=== PATIENT | male | born 1935 | race Caucasian/White ===

== ENCOUNTER 2017-10-29 06:24 | Outpatient (CLI) | payer OTHER | END 2017-10-29 06:25 | disposition critical access hospital (66) | LOC: EMS 06:24 | PROVIDERS: ATTEND Surgery | DX: R53.1 Weakness (principal); R50.9 Fever, unspecified; R05 Cough; R07.9 Chest pain, unspecified; W06.XXXA Fall from bed, initial encounter; Y92.003 Bedroom of unspecified non-institutional (private) residence as the place of occurrence of the external cause | CPT/HCPCS: A0425; A0427 ==

== ENCOUNTER 2017-10-29 06:44 | Emergency (ER) | payer OTHER ==
--- NOTE | 2017-10-29 07:08 | ED Physician Documentation ---
PD HPI SYNCOPE - Stated complaint Stated Complaint: WEAKNESS - Chief complaint Chief Complaint: Neuro - History obtained from History obtained from: Patient, Family (), EMS - History of Present Illness Timing - onset: How many hours ago (1) Duration: Minutes Preceding symptoms: Generalized weakness (he has been feeling sick with weakness , aches, cough, wheezing for 2-3 days (his was sick first and now he has it ). as getting out of bed and could not stand, slumped to the floor onto his buttocks, and then could not get up. No LOC per se. No headache nor chest pain. He is a big vinicius and could not get him up. EMS called. They noted BP to be low at 80s systolic initially while sitting up on the floor. This improved once lying on stretcher and given also some IV fluids enroute. Heart rate seemed irregular to the Medics. Monitor here showing NSR with PVCs and some PACs.). No : Headache Associated symptoms: Dyspnea. No: Headache, Chest pain, Diaphoresis, Abdominal pain Contributing factors: Just stood up (from bed) Injury occurred: No: Fell, Head injury, Neck injury Treatment LEAF BLENDER: Fluids Similar symptoms before: Has not had sx before Recently seen: Clinic (for UTI a couple weeks ago.) Review of Systems Constitutional: reports: Chills, Myalgias, Fatigue. denies: Fever Nose: reports: Rhinorrhea / runny nose, Congestion Throat: denies: Sore throat Respiratory: reports: Dyspnea, Cough, Wheezing GI: denies: Abdominal Pain, Nausea, Vomiting, Diarrhea : denies: Dysuria (did a few weeks ago, but is normal since abx for UTI.) Skin: denies: Rash, Lesions Musculoskeletal: denies: Neck pain, Back pain Neurologic: reports: Generalized weakness, Near syncope. denies: Focal weakness , Numbness, Syncope, Altered mental status Psychiatric: denies: Anxiety, Insomnia Endocrine: denies: Weight loss Immunocompromised: denies: Immunocompromised PD PAST MEDICAL HISTORY - Past Medical History Past Medical History: Yes Cardiovascular: Hypertension, High cholesterol Endocrine/Autoimmune: Type 2 diabetes, HyPOthyroidism Other Past Medical History: Neuropathy; Prostate problems - Past Surgical History Past Surgical History: Yes - Present Medications Home Medications: Ambulatory Orders Medication Instructions Recorded Confirmed Albuterol Sulf [Ventolin Hfa 1 - 2 puffs INH Q4HR PRN #1 inhaler 04/26/18 Inhaler] Benzonatate [Tessalon] 100 mg PO TID PRN #25 capsule 10/29/17 Cephalexin [Keflex] 500 mg PO DAILY 10/29/17 10/29/17 DULoxetine [Cymbalta] 20 mg PO DAILY 10/29/17 10/29/17 Dexamethasone [Decadron] 4 mg PO DAILY #5 tablet 10/29/17 Fexofenadine HCl 180 mg PO DAILY 10/29/17 10/29/17 Gabapentin 300 mg PO DAILY 10/29/17 10/29/17 Levothyroxine [Synthroid] 112 mcg PO QDAC 10/29/17 10/29/17 Metoprolol Succinate/Hctz 25 mg PO DAILY 10/29/17 10/29/17 [Metoprolol ER-Hctz 25-12.5 mg] Salsalate 750 mg PO DAILY 10/29/17 10/29/17 Simvastatin 40 mg PO DAILY 10/29/17 10/29/17 Tamsulosin [Flomax] 0.4 mg PO DAILY 10/29/17 10/29/17 Venlafaxine HCl [Effexor Xr] 150 mg PO DAILY 10/29/17 10/29/17 - Allergies Allergies/Adverse Reactions: Allergies Allergy/AdvReac Type Severity Reaction Status Date / Time No Known Drug Allergies Allergy Verified 10/29/17 07:33 - Living Situation Living Situation: reports: With spouse/s.o. Living Arrangement: reports: At home - Social History Does the pt smoke?: No Smoking Status: Never smoker Does the pt drink ETOH?: No Does the pt have substance abuse?: No - Family History Family history: reports: Non contributory - Immunizations Immunizations are current?: Yes PD ED PE NORMAL - Vitals Vital signs reviewed: Yes - General General: Alert and oriented X 3, No acute distress, Well developed/nourished - HEENT HEENT: Ears normal, Moist mucous membranes, Pharynx benign - Neck Neck: Supple, no meningeal sign, No adenopathy, No JVD - Cardiac Cardiac: No murmur. No: RRR (irregular but only slightly) - Respiratory Respiratory: No: Clear bilaterally (no coarse sounds; has diffuse exp wheezing throughout. ) - Abdomen Abdomen: Soft, Non tender - Male Male : Deferred - Rectal Rectal: Deferred - Back Back: No CVA TTP - Derm Derm: Normal color, Warm and dry, No rash - Extremities Extremities: No tenderness to palpate, Normal ROM s pain, No calf tenderness / cord, Other (1+ edema in both legs. Not tender. ) - Neuro Neuro: Alert and oriented X 3, childcare provider 2-12 intact, No motor deficit, No sensory deficit, Normal speech Eye Opening: Spontaneous Motor: Obeys Commands Verbal: Oriented GCS Score: 15 - Psych Psych: Normal mood Results - Vitals Vitals: Vital Signs - 24 hr 10/29/17 10/29/17 10/29/17 06:47 07:00 08:12 Temperature 37.7 C H Heart Rate 88 79 84 Respiratory 20 27 H 20 Rate Blood Pressure 119/60 119/97 H O2 Saturation 93 94 10/29/17 09:02 Temperature Heart Rate 81 Respiratory 16 Rate Blood Pressure O2 Saturation Oxygen O2 Source Nasal cannula Oxygen Flow Rate 2 - EKG (time done) 06:48 Rate: Rate (enter#) (96) Rhythm: NSR, Other (frequency PVCs and some PACs. ). No: Atrial fibrillation [place]: Normal Intervals: 1st degree AVB QRS: Normal Ischemia: Normal ST segments. No: ST elevation c/w ischemia, ST depression - Labs Labs: Laboratory Tests 10/29/17 10/29/17 10/29/17 07:44 07:44 07:44 WBC 3.8 L RBC 4.09 L Hgb 13.0 L Hct 38.4 L MCV 94.1 H MCH 31.9 H MCHC 33.9 RDW 14.7 Plt Count 58 L MPV 9.5 Neut # 2.7 Lymph # 0.5 L [place] # 0.6 Eos # 0.0 Baso # 0.0 Absolute Nucleated RBC 0.00 Nucleated RBC % 0.0 Sodium 137 Potassium 3.5 Chloride 108 Carbon Dioxide 23 Anion Gap 6.0 BUN 14 Creatinine 1.1 Estimated GFR (MDRD) 64 L Glucose 98 Lactic Acid Calcium 8.1 L Magnesium 1.7 Total Bilirubin 0.6 AST 20 ALT 21 Alkaline Phosphatase 55 Troponin I < 0.04 B-Natriuretic Peptide Total Protein 5.7 L Albumin 3.5 Globulin 2.2 Albumin/Globulin Ratio 1.6 Lipase 21 L Urine Color Urine Clarity Urine pH Ur Specific [place] Urine Protein Urine Glucose (UA) Urine Ketones Urine Occult Blood Urine Nitrite Urine Bilirubin Urine Urobilinogen Ur Leukocyte Esterase Ur Microscopic Review Urine Culture Comments 10/29/17 10/29/17 10/29/17 07:44 07:44 08:42 WBC RBC Hgb Hct MCV MCH MCHC RDW Plt Count MPV Neut # Lymph # [place] # Eos # Baso # Absolute Nucleated RBC Nucleated RBC % Sodium Potassium Chloride Carbon Dioxide Anion Gap BUN Creatinine Estimated GFR (MDRD) Glucose Lactic Acid 0.8 Calcium Magnesium Total Bilirubin AST ALT Alkaline Phosphatase Troponin I B-Natriuretic Peptide 232 H Total Protein Albumin Globulin Albumin/Globulin Ratio Lipase Urine Color YELLOW Urine Clarity CLEAR Urine pH 5.0 Ur Specific [place] 1.025 Urine Protein NEGATIVE Urine Glucose (UA) NEGATIVE Urine Ketones NEGATIVE Urine Occult Blood NEGATIVE Urine Nitrite NEGATIVE Urine Bilirubin NEGATIVE Urine Urobilinogen 0.2 (NORMAL) Ur Leukocyte Esterase NEGATIVE Ur Microscopic Review NOT INDICATED Urine Culture Comments NOT INDICATED - Rads (name of study) chest Radiology: Prelim report reviewed, EMP read contemporaneously PD MEDICAL DECISION MAKING - ED course Complexity details: reviewed results, re-evaluated patient (feeling still ill but ambulatory. Sats lower at 90-93%. Improved breathing with Albuterol nebs. He does not have sepsis, CHF, nor pneumonia ([facility] reading more c/w atelectasis) . No real admission criteria and he seems well enough to try home. He would prefer that. ), considered differential, d/w patient Departure - Departure Disposition: 01 Home, Self Care Clinical Impression: General weakness, Transient hypotension Upper respiratory infection Qualifiers: URI type: unspecified URI Qualified Code(s): J06.9 - Acute upper respiratory infection, unspecified Condition: Stable Record reviewed to determine appropriate education?: Yes Instructions: ED URI Viral W Wheezing Follow-Up: Wilfredo Rodriguez MD [Primary Care Provider] - Prescriptions: Albuterol Sulf [Ventolin Hfa Inhaler] 1 - 2 puffs INH Q4HR PRN #1 inhaler PRN Reason: Shortness Of Air/Wheezing Benzonatate [Tessalon] 100 mg PO TID PRN #25 capsule PRN Reason: Cough Dexamethasone [Decadron] 4 mg PO DAILY #5 tablet Comments: Drink lots of fluids. Continue your current medications. Your markers for sepsis are normal. Your chest x-ray is pretty clear without any obvious pneumonia. You do have the wheezing however and for that to use the albuterol inhaler 2 puffs 4 times a day for the next 7-10 days and extra times if needed. Decadron steroid for inflammation of the airways daily for 5 more days. You can stop it if your blood sugars get too high with it. Add Tessalon if needed for cough. Recheck if not improving over the next couple of days and return sooner if worse. Discharge Date/Time: 10/29/17 09:34
[2017-10-29 07:09] VITALS: BP 119/97
[2017-10-29] MEDS ORDERED: SODIUM CHLORIDE 0.9% 500 ML IV ONE (07:30)
[2017-10-29] MEDS ORDERED: ALBUTEROL NEB 2.5 MG/3 ML INH STA (07:30)
[2017-10-29 08:01] LABS: BASOPHILS % (AUTO) 0.2 %; LYMPHOCYTES # (AUTO) 0.5 10^3/uL (1.5-3.5); LYMPHOCYTES % (AUTO) 12.5 %; MEAN CORPUSCULAR HEMOGLOBIN 31.9 pg (27.0-31.0); MEAN CORPUSCULAR HGB CONC 33.9 g/dL (32.0-36.0); MEAN CORPUSCULAR VOLUME 94.1 fL (80.0-94.0); MEAN PLATELET VOLUME 9.5 fL (7.4-11.4); MONOCYTES # (AUTO) 0.6 10^3/uL (0.0-1.0); NEUTROPHILS # (AUTO) 2.7 10^3/uL (1.5-6.6); NEUTROPHILS % (AUTO) 71.3 %; PLT - PLATELET COUNT 58 10^3/uL (130-450); RED BLOOD COUNT 4.09 10^6/uL (4.70-6.10); RED CELL DISTRIBUTION WIDTH 14.7 % (12.0-15.0); WHITE BLOOD COUNT 3.8 x10^3/uL (4.8-10.8)
[2017-10-29 08:08] LABS: ALBUMIN 3.5 g/dL (3.2-5.5); ALBUMIN/GLOBULIN RATIO 1.6 (1.0-2.2); BILIRUBIN,TOTAL 0.6 mg/dL (0.2-1.0); CALCIUM 8.1 mg/dL (8.5-10.3); CREATININE 1.1 mg/dL (0.6-1.2); MAGNESIUM 1.7 mg/dL (1.7-2.8); TOTAL PROTEIN 5.7 g/dL (6.7-8.2)
--- NOTE | 2017-10-29 08:14 | XRAY Report ---
EXAM: CHEST RADIOGRAPHY EXAM DATE: 10/29/2017 08:06 AM. CLINICAL HISTORY: Cough and dyspnea for few days. COMPARISON: None. TECHNIQUE: 2 views. FINDINGS: Lungs/Pleura: There is mild streaky opacity at the right lung base. No pleural effusion. No pneumotho rax. Normal volumes. Mediastinum: There is mild enlargement of the cardiac silhouette. Other: No acute osseous abnormality. IMPRESSION: 1. Mild streaky opacity at the right lung base may be due to atelectasis, aspiration, or pneumonia. 2. Mild cardiomegaly. [facility] Referring Provider Line: [phone] SITE ID: [id number]
--- NOTE | 2017-10-29 08:14 | XRAY Preliminary Report ---
Exam: XR CHEST 2 VIEW X-RAY IMPRESSION: 1. Mild streaky opacity at the right lung base may be due to atelectasis, aspiration, or pneumonia. 2. Mild cardiomegaly. [facility] SITE ID: [id number]
[2017-10-29 08:46] LABS: BILIRUBIN,URINE NEGATIVE (NEGATIVE); GLUCOSE, URINE (UA) NEGATIVE (NEGATIVE); KETONES,URINE (UA) NEGATIVE (NEGATIVE); LEUKOCYTE ESTERASE, URINE NEGATIVE (NEGATIVE); NITRITE,URINE NEGATIVE (NEGATIVE); OCCULT BLOOD,URINE NEGATIVE (NEGATIVE); PROTEIN,URINE NEGATIVE (NEGATIVE); UROBILINOGEN,URINE 0.2 (NORMAL) E.U./dL (NORMAL)
[2017-10-29] MEDS ORDERED: IPRATROPIUM/ALBUTEROL 3 ML NEB INH STA (08:52)
[2017-10-29] MEDS ORDERED: DEXAMETHASONE 10 MG/ML VIAL PO STA (08:56)
[2017-10-29] MEDS ORDERED: BENZONATATE 100 MG CAPSULE PO STA (08:56)
[2017-10-29] MEDS ORDERED: guaiFENesin/CODEINE 5 ML UDC PO STA (08:56)
[2017-10-29 08:57] LABS: CLARITY,URINE CLEAR (CLEAR)
== END 2017-10-29 09:34 | disposition home or self-care (01) ==
LOC: EDUNIT# → ED 06:44
DX: R53.1 Weakness (principal); I95.89 Other hypotension; I10 Essential (primary) hypertension; E11.42 Type 2 diabetes mellitus with diabetic polyneuropathy; E03.9 Hypothyroidism, unspecified; E78.00 Pure hypercholesterolemia, unspecified
CPT/HCPCS: 36415; 71046; 80053; 81003; 83605; 83690; 83735; 83880; 84484; 85025; 93005; 94640; 94664; 99284; A9270; 81001; 87086

== ENCOUNTER 2024-05-11 23:19 | Inpatient (IN) ==
--- NOTE | 2024-05-11 23:19 | ED Physician Documentation ---
PD HPI FOCAL NEURO Stated complaint Stated Complaint: STROKE LIKE SYMP Chief complaint Chief Complaint: Neuro Additional information Additional information: BIBA. HPI from patient, EMS, patient's son (who is in the ED at patient's bedside). At approximately 5 PM today, the family noted that the patient was "weaker than usual" (per EMS report). Patient then went to bed; per EMS report, family indicated patient getting in bed at that hour is not unusual. However, at approximately 10:45 PM tonight, a family member then checked on the patient and found that the patient was to weak to ambulate to the bathroom. Although the weakness appeared to be predominantly generalized weakness, the son perceived the right hand seemed to lack coordination and that there was also a questionable/subtle left facial droop. The issues with the right hand and facial droop have resolved by the time the patient is arrived to the emergency department. Family also notes that, since checking on him at 10:45 PM tonight, the patient is very slow to answer questions, confused with some of his answers; indicate this is not the patient's baseline mental status. Patient is febrile in the emergency department, family was not aware of any fever at home (EMS noted PO temperature 100.1). Lastly, the patient is found to have a room-air pulse ox of 88%, corrects to mid-90s with 2 L nasal cannula oxygen. Patient does not use oxygen at home. Patient denies chest pain, cough, dyspnea. On my HPI, the patient is slow to answer at times, falls asleep a few times during H & P although awakens easily to voice. His answers are slow, quiet, but accurate (oriented x 3). [place] Coma Scale Assess Eye opening: To Voice Verbal response: Oriented Motor response: Obeys Commands Total score: 14 Meds/Allgy Home Medications Ambulatory Orders Medication Instructions Recorded Confirmed albuterol sulfate 90 mcg/actuation 1 - 2 puff inhalation Q4HR PRN 10/29/17 aerosol inhaler (Ventolin HFA) Shortness Of Air/Wheezing ##1 benzonatate 100 mg capsule 100 mg PO TID PRN Cough ##25 10/29/17 dexamethasone 4 mg tablet 4 mg PO DAILY #5 tabs 10/29/17 duloxetine 20 mg capsule,delayed 20 mg PO DAILY 10/29/17 10/29/17 release fexofenadine 180 mg tablet 180 mg PO DAILY 10/29/17 10/29/17 gabapentin 300 mg capsule 300 mg PO DAILY 10/29/17 10/29/17 levothyroxine 112 mcg tablet 112 mcg PO QDAC 10/29/17 10/29/17 metoprolol succ 25 25 mg PO DAILY 10/29/17 10/29/17 mg-hydrochlorothiazide 12.5 mg tablet,ext.rel 24 hr salsalate 750 mg tablet 750 mg PO DAILY 10/29/17 10/29/17 simvastatin 40 mg tablet 40 mg PO DAILY 10/29/17 10/29/17 tamsulosin 0.4 mg capsule 0.4 mg PO DAILY 10/29/17 10/29/17 venlafaxine 150 mg 150 mg PO DAILY 10/29/17 10/29/17 capsule,extended release 24 hr (Effexor XR) Allergies Allergies Allergy/AdvReac Type Severity Reaction Status Date / Time No Known Drug Allergies Allergy Verified 05/11/24 23:41 COUNTS INCLUDE 234 BEDS AT THE [facility] Medical History Medical History (Updated 05/12/24 @ 00:52 by Jax Rosas MD) High cholesterol Bladder cancer Diabetes Surgical History Surgical History (Updated 05/11/24 @ 23:38 by Cami Batres RN) History of bladder surgery Social History Social History Smoking Status: Never smoker Living arrangement: At home Living Condition: With spouse/s.o. Relationship: Child Do you feel safe in your home environment?: Yes Suffered physical, verbal, emotional, or financial abuse?: No History of Abuse: No Exam Constitutional no apparent distress, abnormal body habitus (obese) and level of alertness abnormal (lethargic) HENMT oral mucous membranes normal Eyes PERRL, EOMs intact bilaterally and normal visual hernandez by confrontation Neck/C-Spine no meningeal signs Respiratory breath sounds equal bilaterally, abnormal respiratory effort (shallow breathing) and clear to auscultation bilaterally (CTAB but shallow breaths) Cardiovascular normal heart rate noted, regular rhythm noted, no murmur and edema noted (3+ bilateral) Gastrointestinal abdomen soft to palpation, nontender to palpation and nondistended Genitourinary no CVA tenderness Psychiatry oriented x3 Results Vitals Vitals: Vital Signs - 24 hr 05/11/24 23:24 05/11/24 23:25 05/11/24 23:41 Temperature 39.0 C H Temperature Source Oral Pulse Rate 87 86 Respiratory Rate 32 H 28 H Blood Pressure 118/62 O2 Saturation 92 93 Oxygen Delivery Method Nasal Cannula O2 Source Room air Nasal cannula Oxygen Flow Rate If not protocol: Oxygen Flow, liters/minute 88 2 2 Pain Intensity 1 1 05/12/24 00:01 05/12/24 00:34 05/12/24 00:34 Temperature Temperature Source Pulse Rate 79 Respiratory Rate 18 Blood Pressure 120/60 O2 Saturation 93 Oxygen Delivery Method Nasal Cannula O2 Source Nasal cannula Oxygen Flow Rate 2 If not protocol: Oxygen Flow, liters/minute 2 Pain Intensity 0 2 05/12/24 01:21 Temperature Temperature Source Pulse Rate Respiratory Rate Blood Pressure O2 Saturation Oxygen Delivery Method O2 Source Oxygen Flow Rate If not protocol: Oxygen Flow, liters/minute Pain Intensity 0 Oxygen O2 Source Nasal cannula Oxygen Flow Rate 2 Labs Labs: Laboratory Tests 05/11/24 05/11/24 05/11/24 23:28 23:58 23:59 WBC 5.8 RBC 4.46 L Hgb 14.2 Hct 43.1 MCV 96.6 H MCH 31.8 H MCHC 32.9 RDW 13.2 Plt Count 77 L MPV 12.7 H Neut # (Auto) 4.9 Lymph # (Auto) 0.4 L [place] # (Auto) 0.5 Eos # (Auto) 0.0 Baso # (Auto) 0.0 Absolute Nucleated RBC 0.00 Nucleated RBC % 0.0 PT 18.3 H INR 1.7 H APTT 30.9 Sodium 139 Potassium 4.0 Chloride 106 Carbon Dioxide 23 Anion Gap 10.0 BUN 27 H Creatinine 1.2 Estimated GFR (MDRD) 57 L Glucose 147 H Lactic Acid 1.2 Calcium 9.2 Total Bilirubin 0.7 AST 15 ALT 11 Alkaline Phosphatase 63 Total Protein 5.6 L Albumin 3.7 Globulin 1.9 L Albumin/Globulin Ratio 1.9 Lipase < 10 L Nasal Adenovirus (PCR) NOT DETECTED Nasal B. parapertussis DNA (PCR) NOT DETECTED Nasal Coronavir 229E PCR NOT DETECTED Nasal Coronavir HKU1 PCR NOT DETECTED Nasal Coronavir NL63 PCR NOT DETECTED Nasal Coronavir OC43 PCR NOT DETECTED Nasal Enterovir/Rhinovir PCR NOT DETECTED Nasal Influenza B PCR NOT DETECTED Nasal Influenza A PCR NOT DETECTED Nasal Parainfluen 1 PCR NOT DETECTED Nasal Parainfluen 2 PCR NOT DETECTED Nasal Parainfluen 3 PCR NOT DETECTED Nasal Parainfluen 4 PCR NOT DETECTED Nasal RSV (PCR) NOT DETECTED Nasal B.pertussis DNA PCR NOT DETECTED Nasal C.pneumoniae (PCR) NOT DETECTED [place] Human Metapneumo PCR NOT DETECTED Nasal M.pneumoniae (PCR) NOT DETECTED Nasal SARS-CoV-2 (PCR) NOT DETECTED Rads (name of study) chest xray: Relevant Findings:: Prelim report reviewed and See rad report CTH: Relevant Findings:: Prelim report reviewed and See rad report PD Medical Decision Making ED course Complexity details: reviewed results, re-evaluated patient, considered differential, d/w patient and d/w family ED course: Initially, per EMS report, the concern was CVA versus TIA. However, patient is found to have a significant fever in ED triage (39.0). Patient's signs and symptoms are mostly consistent with being caused by the high fever (with cause of fever now the primary focus of tonight's testing). The only questionable signs that would not be c/w fever are reported left facial droop and RUE discoordination; however, these have resolved by the time of this H+P and were not confidently present per patient's son (who is in ED at patient's bedside). Negative respiratory PCR panel. Normal lactate, normal white blood cell count. However, patient continued to have supplemental O2 requirement (would desaturate to 89% when I turned off the supplemental oxygen; this was within several minutes and I did not leave the room during this trial on room air. His pulse ox improved to 93% with resumption of 2 l/min NC oxygen). Given the fever, oxygen requirement, and chest x-ray showing by basilar opacities, will treat for possible early pneumonia with IV Rocephin and Zithromax and admit to observation. I discussed this case with the [place] emergency department telehealth practitioner on duty who accepts patient to the hospitalist service. Discharge Plan Discharge Patient Disposition: ED Place in Observation Condition: Stable Clinical Impression: Pneumonia Qualifiers: Pneumonia type: due to unspecified organism Laterality: bilateral Lung location: lower lobe of lung Qualified Code(s): J18.9 - Pneumonia, unspecified organism NIHSS Level of Consciousness Level of consciousness: (1) Not alert, but arousable by minor stimulation to obey, or answer LOC Questions: (0) Answers both Q's correct LOC Commands: (0) Performs both correctly Gaze Best Gaze: (0) Normal Visual Visual: (0) No loss Facial Palsy Facial Palsy: (0) Normal, symmetrical movement Motor Arms (both separate) Motor Arm (right): (0) No drift Motor Arm (left): (0) No drift Motor Legs (both separate) Motor Leg (right): (0) No drift Motor Leg (left): (0) No drift Limb Ataxia Limb Ataxia: (1) Present in 1 limb (LUE (mild)) Sensory Sensory: (0) Normal Best Language Best Language: (0) No aphasia Dysarthria Dysarthria: (0) Normal Extinction and Inattention (formally neg Extinction and inattention: (0) No abnormality Total Score/Results Total Score/Result: 2
[2024-05-12] LABS: BASOPHILS % (AUTO) 0.2 %; EOSINOPHILS % (AUTO) 0.2 %; HCT - HEMATOCRIT 43.1 % (42.0-52.0); HGB - HEMOGLOBIN 14.2 g/dL (14.0-18.0); LYMPHOCYTES # (AUTO) 0.4 10^3/uL (1.5-3.5); LYMPHOCYTES % (AUTO) 6.1 %; MEAN CORPUSCULAR HEMOGLOBIN 31.8 pg (27.0-31.0); MEAN CORPUSCULAR HGB CONC 32.9 g/dL (32.0-36.0); MEAN CORPUSCULAR VOLUME 96.6 fL (80.0-94.0); MEAN PLATELET VOLUME 12.7 fL (7.4-11.4); MONOCYTES # (AUTO) 0.5 10^3/uL (0.0-1.0); NEUTROPHILS # (AUTO) 4.9 10^3/uL (1.5-6.6); NEUTROPHILS % (AUTO) 84.3 %; PLT - PLATELET COUNT 77 10^3/uL (130-450); RED BLOOD COUNT 4.46 10^6/uL (4.70-6.10); RED CELL DISTRIBUTION WIDTH 13.2 % (12.0-15.0); WHITE BLOOD COUNT 5.8 x10^3/uL (4.8-10.8)
[2024-05-12] MEDS: ACETAMINOPHEN 325 MG TABLET PO STA (00:01)
[2024-05-12 00:09] LABS: ALBUMIN 3.7 g/dL (3.2-5.5); ALBUMIN/GLOBULIN RATIO 1.9 (1.0-2.2); ALKALINE PHOSPHATASE 63 IU/L (42-121); ALT ALANINE AMINOTRANSFERASE 11 IU/L (10-60); AST ASPARTATE AMINOTRANSFERASE 15 IU/L (10-42); BILIRUBIN,TOTAL 0.7 mg/dL (0.2-1.0); BUN - BLOOD UREA NITROGEN 27 mg/dL (6-20); CALCIUM 9.2 mg/dL (8.5-10.3); CARBON DIOXIDE - CO2 23 mmol/L (21-32); CHLORIDE 106 mmol/L (101-111); CREATININE 1.2 mg/dL (0.6-1.3); GFR - MDRD 57 (>89); GLUCOSE 147 mg/dL (74-104); LIPASE < 10 U/L (11-82); SODIUM 139 mmol/L (135-145); TOTAL PROTEIN 5.6 g/dL (6.4-8.9)
[2024-05-12 00:20] LABS: PARTIAL THROMBOPLASTIN TIME 30.9 secs (24.9-33.3)
[2024-05-12 00:24] LABS: INR 1.7 (0.8-1.2); PT - PROTHROMBIN TIME 18.3 secs (9.9-12.6)
--- NOTE | 2024-05-12 00:32 | XRAY Report ---
PROCEDURE: XR Chest 1V INDICATIONS: SOA TECHNIQUE: One view of the chest was acquired. COMPARISON: 10/29/2017 FINDINGS: Surgical changes and devices: None. Lungs and pleura: Low lung volumes. Mild bibasilar opacities. No pleural effusions. Mediastinum: Mild cardiomegaly, unchanged. Bones and chest wall: Degenerative findings IMPRESSION: Low lung volumes on limited single view radiograph. Mild bibasilar opacities may represent atelectasis versus early airspace disease. Cardiomegaly again seen. Reviewed by: Erickson Aparicio MD on 05/12/2024 12:30 AM PST Approved by: Erickson Aparicio MD on 05/12/2024 12:30 AM PST Station ID: [id number]
--- NOTE | 2024-05-12 00:33 | CT Report ---
PROCEDURE: CT Head WO INDICATIONS: AMS, weakness TECHNIQUE: Noncontrast 4.5 mm thick angled axial sections acquired from the foramen magnum to the vertex. For r adiation dose reduction, the following was used: automated exposure control, adjustment of mA and/or kV according to patient size. COMPARISON: None. FINDINGS: Image quality: Diagnostic CSF spaces: Basal cisterns are patent. Lateral ventricles are symmetric. Volume: Vascular calcifications. Periventricular white matter disease is commonly seen with chronic m icroangiopathy. Volume loss is present. These findings are moderate Brain: No acute hemorrhage or gross loss of ch-white differentiation Craniofacial structures: No acute osseous abnormality where visualized. Mild paranasal sinus mucosal thickening. IMPRESSION: No acute intracranial abnormality. If there is high concern for parenchymal pathology, consider further evaluation with MRI. Reviewed by: Erickson Aparicio MD on 05/12/2024 12:32 AM [facility] Approved by: Erickson Aparicio MD on 05/12/2024 12:32 AM [facility] Station ID: [id number]
[2024-05-12 00:45] LABS: B. PARAPERTUSSIS- RESP PCR PAN NOT DETECTED; B. PERTUSSIS- RESP PCR PANEL NOT DETECTED; C. PNEUMONIAE- RESP PCR PANEL NOT DETECTED; CORONAVIRUS 229E-RESP PCR NOT DETECTED; CORONAVIRUS HKU1-RESP PCR NOT DETECTED; CORONAVIRUS NL63-RESP PCR NOT DETECTED; CORONAVIRUS OC43-RESP PCR NOT DETECTED; HUMAN METAPNEUMOVIRUS NOT DETECTED; INFLUENZA A- RESP PCR PANEL NOT DETECTED; INFLUENZA B - RESP PCR PANEL NOT DETECTED; M. PNEUMONIAE- RESP PCR PANEL NOT DETECTED; PARAINFLUENZA VIRUS 1 NOT DETECTED; PARAINFLUENZA VIRUS 2 NOT DETECTED; PARAINFLUENZA VIRUS 3 NOT DETECTED; PARAINFLUENZA VIRUS 4 NOT DETECTED; RHINOVIRUS/ENTEROVIRUS NOT DETECTED; RSV- RESP PCR PANEL NOT DETECTED; SARS-CoV-2 -RESP PCR PANEL NOT DETECTED
[2024-05-12] MEDS: SODIUM CHLORIDE 0.9% 1,000 ML IV STA (00:54)
[2024-05-12] MEDS: AZITHROMYCIN INJ 500 MG in SODIUM CHLORIDE 0.9% 250 ML IV STA (01:18)
[2024-05-12] MEDS: cefTRIAXone 2 GM VIAL IVP STA (01:21)
[2024-05-12] MEDS ORDERED: ONDANSETRON ODT 4 MG TABLET TL PRN (01:25)
[2024-05-12 03:56] LABS: BILIRUBIN,URINE NEGATIVE (NEGATIVE); CLARITY,URINE CLEAR (CLEAR); GLUCOSE, URINE (UA) NEGATIVE (NEGATIVE); KETONES,URINE (UA) NEGATIVE (NEGATIVE); LEUKOCYTE ESTERASE, URINE NEGATIVE (NEGATIVE); NITRITE,URINE NEGATIVE (NEGATIVE); OCCULT BLOOD,URINE LARGE (NEGATIVE); PH,URINE 5.5 PH (5.0-7.5); PROTEIN,URINE NEGATIVE (NEGATIVE); UROBILINOGEN,URINE 0.2 (NORMAL) E.U./dL (NORMAL)
[2024-05-12 04:03] LABS: BACTERIA,URINE Rare /HPF (None Seen); MUCUS,URINE Few Strands; RBC,URINE TNTC /HPF (0-5); SQUAMOUS EPITHELIAL CELL,UR RARE Squamous (<= Few); WBC,URINE 0-3 /HPF (0-3)
[2024-05-12] MEDS ORDERED: BENZONATATE 100 MG CAPSULE PO PRN (08:01)
[2024-05-12] MEDS ORDERED: IPRATROPIUM/ALBUTEROL 3 ML NEB INH PRN (08:02)
--- NOTE | 2024-05-12 08:28 | HISTORY & PHYSICAL EXAMINATION ---
Chief Complaint Chief Complaint Chief Complaint: Weakness, facial droop History of Present Illness Admitted From Admitted From:: Home History Obtained From Records Reviewed: Yes - emergency room documentation History obtained from: Patient History of Present Illness HPI Comment/Other: Patient is a 88-year-old male with a history of insulin-dependent diabetes mellitus, peripheral neuropathy presented due to weakness. Per patient, he was having some pain in the stomach that came upon abruptly. He described as a sharp pain in his epigastric region with no radiation. He denied any nausea, vomiting, diarrhea, constipation along with it. This pain has now completely resolved; he attributed it to gas. He tried to get up, and was found to be weak. He is send told him that he had a right sided facial droop, and some focal deficits perhaps in his right arm as well. As such, his son is worried about him and called EMS. When he was brought to the emergency room, he was told he had a fever, and that his oxygen levels were low. He does state that he has been having some mild shortness of breath in the last couple days, as well as feeling fevers and chills. He also endorsed a mild dry cough. He denies any chest pain. He has a 30-year smoking history, and appears that he has some albuterol prescribed in the outpatient setting, but he is not been requiring oxygen. Meds/Allgy Home Medications Ambulatory Orders Medication Instructions Recorded Confirmed albuterol sulfate 90 mcg/actuation 1 - 2 puff inhalation Q4HR PRN 10/29/17 aerosol inhaler (Ventolin HFA) Shortness Of Air/Wheezing ##1 benzonatate 100 mg capsule 100 mg PO TID PRN Cough ##25 10/29/17 dexamethasone 4 mg tablet 4 mg PO DAILY #5 tabs 10/29/17 duloxetine 20 mg capsule,delayed 20 mg PO DAILY 10/29/17 10/29/17 release fexofenadine 180 mg tablet 180 mg PO DAILY 10/29/17 10/29/17 gabapentin 300 mg capsule 300 mg PO DAILY 10/29/17 10/29/17 levothyroxine 112 mcg tablet 112 mcg PO QDAC 10/29/17 10/29/17 metoprolol succ 25 25 mg PO DAILY 10/29/17 10/29/17 mg-hydrochlorothiazide 12.5 mg tablet,ext.rel 24 hr salsalate 750 mg tablet 750 mg PO DAILY 10/29/17 10/29/17 simvastatin 40 mg tablet 40 mg PO DAILY 10/29/17 10/29/17 tamsulosin 0.4 mg capsule 0.4 mg PO DAILY 10/29/17 10/29/17 venlafaxine 150 mg 150 mg PO DAILY 10/29/17 10/29/17 capsule,extended release 24 hr (Effexor XR) Allergies Allergies Allergy/AdvReac Type Severity Reaction Status Date / Time No Known Drug Allergies Allergy Verified 05/11/24 23:41 [facility] Medical History Medical History High cholesterol Bladder cancer Diabetes Surgical History Surgical History History of bladder surgery Social History Social History (Updated 05/12/24 @ 08:28 by Ghulam Hart MD) Smoking Status: Former smoker Number of Years Smoked: 30 Living arrangement: At home Living Condition: With spouse/s.o. Relationship: Child Level: Assisted Home Mobility Equipment: Cane and Walker Do you feel safe in your home environment?: Yes Suffered physical, verbal, emotional, or financial abuse?: No History of Abuse: No POLST Patient has POLST: No POLST Status: Full Code Review of Systems Constitutional Reports: Fatigue, Fever, Chills and Weakness; Denies: Diaphoresis, Changes in appetite or eating habits or Poor appetite Eyes Denies: Pain, Irritation, Blurry vision, Floaters or Field loss Ears, nose, mouth, and throat Denies: Ear pain, Ear discharge, Hearing loss, Hearing aids, Tinnitus, Change in hearing, Nasal pain, Nasal discharge, Nasal congestion, Post nasal drip or Neck pain Cardiovascular Reports: edema, swelling of feet/ankles, shortness of breath with exertion and Decreased exercise tolerance; Denies: Irregular heart rate, chest pain, palpitations or Syncope Respiratory Reports: Shortness of breath and Cough; Denies: Sputum production, Change in phlegm color or Wheezing Gastrointestinal Reports: Abdominal pain; Denies: Abdominal distention, Nausea, Vomiting, Poor appetite or Bile emesis Genitourinary Denies: Painful urination, Flank pain, Incontinence, Urinary frequency, Urinary urgency or Nocturia Musculoskeletal Reports: Back pain and Joint pain (chronic); Denies: Neck pain, Extremity pain, Extremity swelling or Gout Integumentary/Breast Reports: Rash (bilateral lower extremities) and Redness Neurological Reports: General weakness, Focal weakness (Right arm weakness, now resolved) and Numbness in extremities (chronic lower extremities, due to DM ); Denies: Headache Psychiatric Denies: Depression or Anxiety Endocrine Reports: Fatigue Hematologic/Lymphatic Denies: Anemia, Easy bruising or Petechiae Allergic/Immunologic Denies: Wheezing Prior Level of Functionality: Functional with cane. Exam Constitutional normal general appearance, no apparent distress, abnormal body habitus (overweight) and alert HENMT normocephalic, head/scalp atraumatic, external ears normal, TMs normal bilaterally and nasal mucous membranes normal Eyes PERRL, EOMs intact bilaterally and conjunctivae normal Chest inspection of chest normal Respiratory breath sounds equal bilaterally, normal respiratory effort, no wheezes, no rales and no use of accessory muscles bilateral bibasilar crackles Cardiovascular normal heart rate noted, regular rhythm noted and no murmur Gastrointestinal abdomen normal to inspection and tender to palpation (mild) and (epigastric) Genitourinary no CVA tenderness and bladder normal to palpation Back/Pelvis spine normal to inspection Extremities normal to inspection, normal to palpation, no tenderness and full ROM Neurology no movement abnormality noted, no focal motor deficit noted, no sensory deficits noted, speech normal and no pronator drift noted mild L facial droop noted Psychiatry mental status grossly normal, oriented x3, thought process normal, cooperative, affect normal and memory normal Skin rash noted (excoriated) (bilateral lower extremities ) Sepsis Event Note (H) Evaluation Current Stage of Sepsis: Sepsis Possible source of Sepsis: positive Pulmonary Sepsis Criteria Sepsis Criteria: Recorded Temperature greater than 38.3C or Less than 36C, Respiratory: Increasing oxygen requirements and SBP drop more than 40mHg Conclusion/Plan Problem List (1) Community acquired pneumonia: Plan: Patient presented with fevers, cough, altered mentation, hypoxia requiring 2 L, tachypnea. Chest x-ray shows mild bibasilar opacities concerning for early airspace disease. Will treat for community-acquired pneumonia with Rocephin and azithromycin at this time. Blood cultures ordered, pending. Continue to wean oxygen as tolerated. Qualifiers: Laterality: unspecified laterality Qualified Code(s): J18.9 - Pneumonia, unspecified organism (2) Sepsis: Plan: Patient tachypneic to the high 30s, as well as febrile. Continue to treat for pulmonary source as stated above. Received IV fluids, and is now eating and drinking well. Qualifiers: Sepsis acute organ dysfunction status: without acute organ dysfunction Sepsis type: sepsis due to unspecified organism Qualified Code(s): A41.9 - Sepsis, unspecified organism (3) Facial droop: Plan: On presentation, patient had left-sided facial droop, which remains. Also had some right upper extremity weakness, which is now resolved. Continue aspirin and statin at this time. CT head showed no acute abnormalities. MRI ordered, pending. ECHO ordered, pending. (4) Diabetic neuropathy: Plan: Has history of diabetic neuropathy, currently on duloxetine and gabapentin. Continued at this time. Qualifiers: Diabetes mellitus complication detail: diabetic polyneuropathy Diabetes mellitus type: type 2 Qualified Code(s): E11.42 - Type 2 diabetes mellitus with diabetic polyneuropathy (5) Hypothyroidism: Plan: Continue levothyroxine. Qualifiers: Hypothyroidism type: unspecified Qualified Code(s): E03.9 - Hypothyroidism, unspecified (6) Hyperlipidemia: Plan: Continue statin. Qualifiers: Hyperlipidemia type: unspecified Qualified Code(s): E78.5 - Hyperlipidemia, unspecified (7) COPD (chronic obstructive pulmonary disease): Plan: Continue Duonebs as needed. Qualifiers: COPD type: unspecified COPD Qualified Code(s): J44.9 - Chronic obstructive pulmonary disease, unspecified Lab Results Lab results reviewed: Yes 05/11/24 23:28 05/11/24 23:28 Diagnostic Imaging Results Diagnostic Imaging Results: positive Final report reviewed Diagnostic Imaging Results Comments: Chest x-ray shows low lung volumes on single view radiograph, mild bibasilar opacities may represent atelectasis versus early spaces disease. Cardiomegaly. Head CT shows no acute intracranial abnormality. Core Measures Anticipated LOS I expect patient to be DC'd or transferred within 96 hours.: No DVT/VTE - Prophylaxis VTE/DVT Device ordered at admit?: Yes VTE/DVT Prophylaxis med ordered at admit?: Yes Stroke - Rehab Assessment Rehab services assessment to be ordered?: Yes AMI - Statin at Admit Aspirin Prescribed on Admit: Yes
[2024-05-12] MEDS: SODIUM CHLORIDE FLUSH 0.9% 10 ML SYRINGE IVP SCH (08:35)
[2024-05-12] MEDS ORDERED: VENLAFAXINE ER 75 MG CAPSULE PO SCH (09:00)
[2024-05-12] MEDS ORDERED: METOPROLOL SU HYDROCHLOROTHIAZ PO SCH (09:00)
[2024-05-12] MEDS ORDERED: HEPARIN 5,000 UNIT/ML VIAL SUBQ SCH (09:00)
[2024-05-12] MEDS ORDERED: DULoxetine 20 MG CAPSULE PO SCH (09:00)
[2024-05-12] MEDS: TAMSULOSIN 0.4 MG CAPSULE PO SCH (09:45)
[2024-05-12] MEDS: LEVOTHYROXINE 112 MCG TABLET PO SCH (09:45)
--- NOTE | 2024-05-12 11:47 | PHARMACY PROGRESS NOTE ---
Best Possible Medication History Admit Date and Time: 05/12/24 [id number] Home Medications Medication Instructions Recorded Confirmed Type levothyroxine 112 mcg tablet 112 mcg PO QDAC 10/29/17 05/12/24 History simvastatin 40 mg tablet 40 mg PO HS 10/29/17 05/12/24 History tamsulosin 0.4 mg capsule 0.4 mg PO DAILY 10/29/17 05/12/24 History venlafaxine 150 mg 150 mg PO DAILY 10/29/17 05/12/24 History capsule,extended release 24 hr (Effexor XR) duloxetine 30 mg capsule,delayed 30 mg PO BID 05/12/24 05/12/24 History release (Cymbalta) finasteride 5 mg tablet 5 mg PO DAILY 05/12/24 05/12/24 History gabapentin 600 mg tablet 1,200 mg PO BID 05/12/24 05/12/24 History insulin aspart U-100 100 unit/mL 10 unit subcut TIDWM 05/12/24 05/12/24 History (3 mL) subcutaneous pen insulin glargine 100 unit/mL (3 40 unit subcut QPM 05/12/24 05/12/24 History mL) subcutaneous pen (Lantus Solostar U-100 Insulin) metoprolol tartrate 25 mg tablet 25 mg PO BID 05/12/24 05/12/24 History salsalate 500 mg tablet 1,500 mg PO BID 05/12/24 05/12/24 History triamcinolone acetonide 0.1 % 1 applic topical BID 05/12/24 05/12/24 History topical cream Processed by: Pharmacy Medications reviewed in ED?: No Medication History completed: Yes Patient Interview: Completed Secondary Source(s): Pharmacy records ([facility], was able to update all doses of medications) [facility] Statement: As the person ultimately responsible for medication therapy, providers are able to order a medication from an existing home medication list in [facility] via the "Reconcile Routine" prior to Confirmation of that medication by desktop support engineer. Such practice is discouraged except when the physician, in their clinical ju dgment, deems that a medical need exists for a medication without regard to previous use.
[2024-05-12] MEDS: ASPIRIN EC 81 MG TABLET PO SCH (11:58)
[2024-05-12] MEDS: GABAPENTIN 300 MG CAPSULE PO SCH ×2 (11:58→14:44)
[2024-05-12] MEDS: INSULIN LISPRO 300 UNIT/3 ML PEN SUBQ SCH (11:58)
[2024-05-12] MEDS: DULoxetine 30 MG CAPSULE PO SCH (11:58)
[2024-05-12] MEDS: ACETAMINOPHEN 325 MG TABLET PO PRN (14:00)
[2024-05-12] MEDS: LORazepam 1 MG TABLET PO ONE ×2 (15:45→16:16)
--- NOTE | 2024-05-12 16:38 | PT Plan of Care ---
PT Inpatient Plan of Care DIAGNOSIS Diagnosis: pneumonia w/ hypoxia Diagnosis: weakness Referring Provider: Ghulam Hart Patient Status: Inpatient CHIEF COMPLAINT Chief Complaint: weak, frequent falls Onset of Chief Complaint: [employer]ER MEDICAL/SURGICAL HISTORY Medical History High cholesterol Bladder cancer Diabetes Surgical History History of bladder surgery BALANCE/FUNCTIONAL RESULTS Sitting Balance: Good Standing Balance: Fair ASSESSMENT Assessment: Pt is a pleasant 88yo M referred for PT eval d/t "stroke-like symptoms", pna with hypoxia, and general deconditioning. MRI still pending at time of eval. 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 [facility], no [facility], pt has walker and cane, grab bars in bathroom. Pt reports freq falls at home with at least 8 in the last year. Upon PT eval, pt on 2L O2, sats WNL throughout. Pt is able to transfer with CGA and amb short distance with minAx1. Gait pattern notable for difficulty pathfinding, WBOS and frequently leaving LLE outside of w alker frame. Benefits from mod, multimodal cueing for safe gait pattern. Pt presents with overall deconditioning, balance and gait impairments and is overall below baseline. Pt will benefit from skilled PT in acute setting to improve safety and indep with mobility. When medically clear, PT rec dc to SNF at this time given about impairments. However, as pt is his 's caregiver, he may not able to dc to SNF, in which case dc home with HHPT/OT/bathaide and caregiver support may be safest dc plan. GOALS Improve supine to sit to:: Modified Independent Improve sit to stand to:: Modified Independent Improve sit to supine to:: Modified Independent Improve gait ability to:: SBA Advance Assistive Device to:: Front Wheeled Walker Increase distance walked to (in feet):: 50 PLAN Frequency: 1-2x/day Duration: Until goals are met DISCHARGE RECOMMENDATIONS Discharge Location: SNF v home Support/Services Needed: Home Health P.T. DC Equipment Recommended: Front wheeled walker Other Discharge Equipment: may need FWW Transport Needs at Discharge: Personal vehicle
--- NOTE | 2024-05-12 18:19 | MRI Report ---
PROCEDURE: MRI Brain WO INDICATIONS: ?TIA TECHNIQUE: Noncontrast axial T1 spin echo, axial T2 fast spin echo, sagittal and axial FLAIR, coronal T2 fast sp in echo, axial gradient echo, axial diffusion and ADC through the brain. COMPARISON: CT head dated 05/11/2024. FINDINGS: Image quality: Diagnostic. CSF Spaces: Basal cisterns are patent. No extra-axial fluid collections. Ventricles are normal in size and shape. Brain: No intracranial masses or hemorrhage. Cadena/white matter interface is normal. Brainstem appe ars normal. Diffusion-weighted images demonstrate no acute ischemic insult. No chronic ischemic ins ults. Normal intravascular flow voids are present. Skull and face: Calvarium has normal marrow signal. Orbits appear normal. Sinuses: Sinuses and mastoids are clear. IMPRESSION: No acute intracranial abnormalities. No evidence for acute infarction. No mass or mass effect Reviewed by: Joselito Hogue MD on 05/12/2024 6:18 PM PST Approved by: Joselito Hogue MD on 05/12/2024 6:18 PM PST Station ID: [id number]
[2024-05-12] MEDS: ATORVASTATIN 10 MG TABLET PO SCH (21:10)
[2024-05-12] MEDS: cefTRIAXone 1 GM VIAL IVP SCH (21:11)
[2024-05-12] MEDS: SODIUM CHLORIDE FLUSH 0.9% 10 ML SYRINGE IVP PRN (21:13)
[2024-05-12] MEDS: AZITHROMYCIN 250 MG TABLET PO SCH (21:14)
[2024-05-13 05:44] LABS: HGB - HEMOGLOBIN 12.7 g/dL (14.0-18.0); MEAN CORPUSCULAR HGB CONC 31.8 g/dL (32.0-36.0); MEAN CORPUSCULAR VOLUME 97.6 fL (80.0-94.0); MEAN PLATELET VOLUME 11.8 fL (7.4-11.4); RED BLOOD COUNT 4.1 10^6/uL (4.70-6.10); RED CELL DISTRIBUTION WIDTH 13.3 % (12.0-15.0); WHITE BLOOD COUNT 3.1 x10^3/uL (4.8-10.8)
[2024-05-13 05:56] LABS: CALCIUM 9.1 mg/dL (8.5-10.3); CREATININE 1.1 mg/dL (0.6-1.3); MAGNESIUM 1.8 mg/dL (1.7-2.3); POTASSIUM 3.7 mmol/L (3.5-4.5)
[2024-05-13] MEDS: ENOXAPARIN 40 MG/0.4 ML SYRINGE SUBQ SCH (08:22)
--- NOTE | 2024-05-13 08:55 | Discharge Summary ---
"Discharge Summary Admit Date: 05/13/24 Discharge Date: 05/14/24 Discharging Provider: Dr. Ghulam Hart DIAGNOSES Admission Diagnoses: Community-acquired pneumonia Sepsis Facial droop Diabetic neuropathy Hypothyroidism Hyperlipidemia COPD Discharge Diagnoses with Status of Each Condition: Community-acquired pneumoniaresolving. Completed 2 days of Rocephin and azithromycin. Will give amoxicillin and azithromycin for total 5-day course. Sepsisresolved. Facial droopresolved. Continue aspirin and statin. MRI negative for any acute strokes. Diabetic neuropathycontinue current home regimen including duloxetine, venlafaxine and gabapentin. From assisted confirm with [facility] pharmacy that he was taking both duloxetine and venlafaxine. Hypothyroidismcontinue levothyroxine Hyperlipidemiacontinue statin. COPDcontinue albuterol inhaler at home as needed. HPI History of Present Illness: Patient is a 88-year-old male with a history of insulin-dependent diabetes mellitus, peripheral neuropathy presented due to weakness. Per patient, he was having some pain in the stomach that came upon abruptly. He described as a sharp pain in his epigastric region with no radiation. He denied any nausea, vomiting, diarrhea, constipation along with it. This pain has now completely resolved; he attributed it to gas. He tried to get up, and was found to be weak. He is send told him that he had a right sided facial droop, and some focal deficits perhaps in his right arm as well. As such, his son is worried about him and called EMS. When he was brought to the emergency room, he was told he had a fever, and that his oxygen levels were low. He does state that he has been having some mild shortness of breath in the last couple days, as well as feeling fevers and chills. He also endorsed a mild dry cough. He denies any chest pain. He has a 30-year smoking history, and appears that he has some albuterol prescribed in the outpatient setting, but he is not been requiring oxygen. CONSULTS | PROCEDURES Consultations: Social work, PT, OT Procedures: CT head, chest x-ray, MRI brain, ECHO HOSPITAL COURSE Hospital Course: Patient is a 88-year-old male with a history of insulin-dependent diabetes mellitus, peripheral neuropathy who presented due to weakness. There was some concern for right facial droop as well as perhaps some right arm weakness, which had completely resolved by time he came in. Nevertheless, CT head, MRI was done, which showed no acute findings. Echo was also done which showed EF of 55%, mild diastolic dysfunction. While he was here, he was also found to be febrile. He was requiring some oxygen and chest x-ray did show some mild bibasilar opacities. He was started on Rocephin and azithromycin for community-acquired pneumonia. He will complete a 3-day course of azithromycin and 5-day course of amoxicillin in the outpatient setting. Patient states that he has all his home medications at home. PT/OT did work with the patient, did recommend SNF for more intensive rehab. However, patient lives at home with his and helps take care of her, and would prefer home health care. Patient felt better, and was doing better. He was afebrile, not requiring oxygen. As such, he was deemed stable for discharge home. ALLERGIES Allergies Allergy/AdvReac Type Severity Reaction Status Date / Time No Known Drug Allergies Allergy Verified 05/11/24 23:41 MEDICATIONS Ambulatory Orders Medication Instructions Recorded Confirmed levothyroxine 112 mcg tablet 112 mcg PO QDAC 10/29/17 05/12/24 simvastatin 40 mg tablet 40 mg PO HS 10/29/17 05/12/24 tamsulosin 0.4 mg capsule 0.4 mg PO DAILY 10/29/17 05/12/24 venlafaxine 150 mg 150 mg PO DAILY 10/29/17 05/12/24 capsule,extended release 24 hr (Effexor XR) duloxetine 30 mg capsule,delayed 30 mg PO BID 05/12/24 05/12/24 release (Cymbalta) finasteride 5 mg tablet 5 mg PO DAILY 05/12/24 05/12/24 gabapentin 600 mg tablet 1,200 mg PO BID 05/12/24 05/12/24 insulin aspart U-100 100 unit/mL 10 unit subcut TIDWM 05/12/24 05/12/24 (3 mL) subcutaneous pen insulin glargine 100 unit/mL (3 40 unit subcut QPM 05/12/24 05/12/24 mL) subcutaneous pen (Lantus Solostar U-100 Insulin) metoprolol tartrate 25 mg tablet 25 mg PO BID 05/12/24 05/12/24 salsalate 500 mg tablet 1,500 mg PO BID 05/12/24 05/12/24 triamcinolone acetonide 0.1 % 1 applic topical BID 05/12/24 05/12/24 topical cream amoxicillin 875 mg tablet 875 mg PO BID 3 days #6 tabs 05/13/24 aspirin 81 mg tablet,delayed 81 mg PO DAILY #30 tabs 05/13/24 release azithromycin 500 mg tablet 500 mg PO DAILY 1 day #1 tab 05/13/24 PHYSICAL EXAM AT DISCHARGE General Appearance: positive No acute distress; negative Anxious or Lethargic Eyes Bilateral: positive Normal inspection, PERRL and EOMI ENT: positive ENT inspection nml, Pharynx nml and No signs of dehydration Neck: positive Nml inspection, Thyroid nml and No JVD Respiratory: positive Chest non-tender, No respiratory distress and Breath sounds nml; negative Wheezes, Rales or Rhonchi Cardiovascular: positive Regular rate & rhythm, No murmur and No gallop Peripheral Pulses: positive 2+ Abdomen: positive Non-tender and No organomegaly; negative Guarding, Rebound, Hepatomegaly, Splenomegaly or Mass Back: positive Nml inspection; negative CVA tenderness (R) or CVA tenderness (L) Skin: positive No rash and Other (multiple bruises; bruises easily, per patient) Extremities: positive Non-tender, Full ROM and No pedal edema Neurologic/Psychiatric: positive Oriented x3, Motor nml and Mood/affect nml; negative Facial droop LABS 05/13/24 05:17 05/13/24 05:17 DIAGNOSTIC IMAGING Diagnostic Imaging Results: Final report reviewed Diagnostic Imaging Results Comments: Chest x-ray shows low lung volumes, mild bibasilar opacities, cardiomegaly. Head CT showed no acute intracranial abnormality. MRI of the brain showed no acute intracranial abnormalities, no evidence of acute infarction. SEPSIS Current Stage of Sepsis: Resolved Possible source of Sepsis: Pulmonary Sepsis Criteria: Recorded Temperature greater than 38.3C or Less than 36C, Respiratory: Increasing oxygen requirements and SBP drop more than 40mHg FOLLOW UP Follow Up: Follow-up with primary care physician upon discharge. TIME SPENT Time Spent in Discharge (Minutes): 30 Discharge Plan Discharge Condition: Stable Prescriptions: New aspirin 81 mg Tablet,Delayed Release (Dr/Ec) 81 mg PO DAILY Qty: 30 0RF amoxicillin 875 mg tablet 875 mg PO BID 3 Days Qty: 6 0RF azithromycin 500 mg tablet 500 mg PO DAILY 1 Days Qty: 1 0RF Continued venlafaxine [Effexor XR] 150 MG capsule,extended release 24hr 150 mg PO DAILY simvastatin 40 MG tablet 40 mg PO HS tamsulosin 0.4 MG capsule 0.4 mg PO DAILY levothyroxine 112 MCG tablet 112 mcg PO QDAC duloxetine [Cymbalta] 30 mg capsule,delayed release(DR/EC) 30 mg PO BID gabapentin 600 mg tablet 1,200 mg PO BID finasteride 5 mg tablet 5 mg PO DAILY metoprolol tartrate 25 mg tablet 25 mg PO BID salsalate 500 mg tablet 1,500 mg PO BID insulin aspart U-100 100 unit/mL (3 mL) insulin pen 10 unit subcut TIDWM insulin glargine [Lantus Solostar U-100 Insulin] 100 unit/mL (3 mL) insulin pen 40 unit subcut QPM triamcinolone acetonide 0.1 % cream 1 applic topical BID Activity Restrictions: Activity as Tolerated Diet: Diabetic Health Concerns: You came in initially because you were found to be weak. You had a questionable facial droop and some right hand weakness as well. As such, we did work you up for stroke. Likely, your CAT scan of your head, as well as your MRI of your brain did not show any strokes. We also got an ultrasound of your heart which showed that it was pumping and feeling well. When you first got here, you did have a fever, and your chest x-ray showed that you may have had a pneumonia. We treated you with antibiotics. When you go home, you will require 1 more day of azithromycin, and 3 more days of amoxicillin twice a day. We also started you on a baby aspirin. I would talk with your primary care physician about whether to continue this. You can continue to take your home medications as prescribed. Please make an appointment to follow-up with your primary care physician in the next week or so. We also had the physical therapist and occupational therapist work with you, and they talked with you about going to a facility versus structured rehab. You opted for home health care, which we will begin to set up for you. Thank you for allowing us to take care of you, we are glad you are feeling better. Care Plan Goals: 1. Complete 1 day of azithromycin, and 3 more days of the amoxicillin at home. 2. Continue to take all other medications as prescribed. 3. Continue to work on your physical conditioning with physical therapy and Occupational Therapy in the outpatient setting. 4. Follow-up with your primary care physician. Print Language: Belarusian Patient Instructions: Pneumonia Dc Stand Alone Forms: PCP List"
[2024-05-13 13:53] VITALS: O2SAT 95
== END 2024-05-13 13:54 | disposition home health service (06) | DRG 871 ==
LOC: ED 23:19 → MS2 23:19 → SUATTDRO 05-12 10:15
PROVIDERS: ADMIT Student in an Organized Health Care Education/Training Program; ATTEND Internal Medicine
DX: J18.9 Pneumonia, unspecified organism; E03.9 Hypothyroidism, unspecified; Z20.822 Contact with and (suspected) exposure to COVID-19; E78.5 Hyperlipidemia, unspecified; R29.810 Facial weakness; A41.9 Sepsis, unspecified organism; Z79.4 Long term (current) use of insulin; Z79.890 Hormone replacement therapy; Z20.818 Contact with and (suspected) exposure to other bacterial communicable diseases; Z79.899 Other long term (current) drug therapy; Z79.82 Long term (current) use of aspirin; J44.0 Chronic obstructive pulmonary disease with (acute) lower respiratory infection; Z20.828 Contact with and (suspected) exposure to other viral communicable diseases; Z87.891 Personal history of nicotine dependence; E11.42 Type 2 diabetes mellitus with diabetic polyneuropathy